=== PATIENT | female | born 1980 | race Caucasian/White ===

== ENCOUNTER 2018-08-18 11:19 | Outpatient (CLI) | payer OTHER | END 2018-08-18 15:00 | disposition home or self-care (01) | LOC: LAB 11:19 | DX: D64.0 Hereditary sideroblastic anemia (principal); D64.89 Other specified anemias; M25.50 Pain in unspecified joint; N39.0 Urinary tract infection, site not specified; I10 Essential (primary) hypertension; M06.4 Inflammatory polyarthropathy; E03.8 Other specified hypothyroidism; D50.8 Other iron deficiency anemias; D52.0 Dietary folate deficiency anemia; M19.90 Unspecified osteoarthritis, unspecified site; K29.00 Acute gastritis without bleeding; Z11.3 Encounter for screening for infections with a predominantly sexual mode of transmission; D39.10 Neoplasm of uncertain behavior of unspecified ovary; D41.9 Neoplasm of uncertain behavior of unspecified urinary organ; D39.8 Neoplasm of uncertain behavior of other specified female genital organs; E78.49 Other hyperlipidemia; Z79.899 Other long term (current) drug therapy; Z01.89 Encounter for other specified special examinations; E63.8 Other specified nutritional deficiencies; E55.9 Vitamin D deficiency, unspecified; E78.89 Other lipoprotein metabolism disorders; R97.1 Elevated cancer antigen 125 [CA 125]; R97.8 Other abnormal tumor markers; Z12.11 Encounter for screening for malignant neoplasm of colon; E10.69 Type 1 diabetes mellitus with other specified complication; D69.8 Other specified hemorrhagic conditions; M06.89 Other specified rheumatoid arthritis, multiple sites; J30.0 Vasomotor rhinitis; D27.9 Benign neoplasm of unspecified ovary; D13.6 Benign neoplasm of pancreas; C25.7 Malignant neoplasm of other parts of pancreas; R51 Headache; J30.9 Allergic rhinitis, unspecified ==

== ENCOUNTER 2018-08-26 09:35 | Outpatient (CLI) | payer OTHER | END 2018-08-26 09:54 | disposition home or self-care (01) | LOC: RAD 09:35 | DX: J32.0 Chronic maxillary sinusitis (principal); J01.00 Acute maxillary sinusitis, unspecified; J45.902 Unspecified asthma with status asthmaticus; R05 Cough; R07.1 Chest pain on breathing; R51 Headache; R10.9 Unspecified abdominal pain; N94.89 Other specified conditions associated with female genital organs and menstrual cycle; R10.2 Pelvic and perineal pain; N64.4 Mastodynia; N60.39 Fibrosclerosis of unspecified breast; N60.29 Fibroadenosis of unspecified breast; N63.10 Unspecified lump in the right breast, unspecified quadrant; N63.20 Unspecified lump in the left breast, unspecified quadrant; Z12.31 Encounter for screening mammogram for malignant neoplasm of breast ==

== ENCOUNTER 2018-08-26 17:12 | Outpatient (CLI) | payer OTHER | END 2018-08-26 17:15 | disposition home or self-care (01) | LOC: LAB | DX: D64.0 Hereditary sideroblastic anemia (principal); D64.89 Other specified anemias; M25.50 Pain in unspecified joint; N39.0 Urinary tract infection, site not specified; I10 Essential (primary) hypertension; M06.4 Inflammatory polyarthropathy; E03.8 Other specified hypothyroidism; D50.8 Other iron deficiency anemias; D52.0 Dietary folate deficiency anemia; M19.90 Unspecified osteoarthritis, unspecified site; Z11.3 Encounter for screening for infections with a predominantly sexual mode of transmission; D39.10 Neoplasm of uncertain behavior of unspecified ovary; D41.9 Neoplasm of uncertain behavior of unspecified urinary organ; D39.8 Neoplasm of uncertain behavior of other specified female genital organs; Z79.899 Other long term (current) drug therapy; Z01.89 Encounter for other specified special examinations; Z13.228 Encounter for screening for other metabolic disorders; E63.8 Other specified nutritional deficiencies; E55.9 Vitamin D deficiency, unspecified; E78.9 Disorder of lipoprotein metabolism, unspecified; R97.1 Elevated cancer antigen 125 [CA 125]; R97.8 Other abnormal tumor markers; Z12.11 Encounter for screening for malignant neoplasm of colon; E10.9 Type 1 diabetes mellitus without complications; D69.9 Hemorrhagic condition, unspecified; M06.9 Rheumatoid arthritis, unspecified; J30.0 Vasomotor rhinitis; D27.9 Benign neoplasm of unspecified ovary; D13.6 Benign neoplasm of pancreas; C25.9 Malignant neoplasm of pancreas, unspecified; J30.9 Allergic rhinitis, unspecified; R51 Headache ==

== ENCOUNTER 2019-12-10 10:23 | Outpatient (CLI) | payer OTHER | END 2019-12-10 10:40 | disposition home or self-care (01) | LOC: MAMO-SONO 10:23 | PROVIDERS: ATTEND Obstetrics & Gynecology | DX: Z12.31 Encounter for screening mammogram for malignant neoplasm of breast (principal) ==